=== PATIENT | male | born 1950 | race Caucasian/White ===

== ENCOUNTER 2021-02-01 05:05 | Day surgery (SDC) | payer OTHER ==
[2021-01-30 15:43] VITALS: BMI 33.8
[2021-02-01 10:09] VITALS: BP 123/67; PULSE 64; TEMP 98.6
== END 2021-02-01 10:05 | disposition home or self-care (01) ==
LOC: JASU-ENDO 05:05
PROVIDERS: ATTEND Internal Medicine Gastroenterology
PROC: 0DBN8ZX Excision of Sigmoid Colon, Via Natural or Artificial Opening Endoscopic, Diagnostic (ICD-10-PCS; principal; 2021-02-01 08:00)
DX: Z12.11 Encounter for screening for malignant neoplasm of colon (principal); K57.30 Diverticulosis of large intestine without perforation or abscess without bleeding; D12.7 Benign neoplasm of rectosigmoid junction; K64.8 Other hemorrhoids
CPT/HCPCS: 88305-TC